=== PATIENT | female | born 1970 | race Caucasian/White ===

== ENCOUNTER → 2019-02-22 | Emergency (ER) | payer BC ==
[~2019-02-22] VITALS: Ht 162.6 cm; Wt 104.3 kg
[~2019-02-22] MED LIST: LISI20TA PO; TOPOMAX PO
[2019-02-22 11:48] VITALS: BP_SYST 166
[2019-02-22 13:08] VITALS: BP_SYST 109
== END | disposition still patient (30) ==
LOC: SED 11:39
DX: J45.909 Unspecified asthma, uncomplicated (principal); I10 Essential (primary) hypertension; G43.909 Migraine, unspecified, not intractable, without status migrainosus; Z79.899 Other long term (current) drug therapy
CPT/HCPCS: 99281